=== PATIENT | male | born 1990 | race Caucasian/White ===

== ENCOUNTER → 2016-03-24 | Outpatient (CLI) | payer BC ==
[2016-03-24 18:48] VITALS: BP 131/74
--- NOTE | 2016-03-24 18:48 | Urgent Care T Sheet Gen (E) ---
Intake General Temperature (Fahrenheit): 97.6 Pulse: 75 Blood Pressure Systolic: 131 Blood Pressure Diastolic: 74 Respirations: 16 SPO2: 99% Chief Complaint: UC Genitourinary Complaint Description of Symptoms This 26 y/o man is here today because of hematuria. He states his day had been going well. He had completed his work day at [employer] and was working out feeling fine, he did some weights and ran a mile. Then he went to urinate and noted that it was difficult to go and when he did he saw artie red blood in his urine and had pain and burning within his penis. He has never had anything like this before. He denies fever and has never been sexually active. He denies any back pain at present. He denies drinking soda. There has not been any nausea or vomiting. His PCP is Dr. Stuart. Source: Patient Exam Limitations: No limitations History of Present Illness Onset & Duration: Hours Timing: Still present Severity: Mild Recent Trauma: No Similar Sympotms Previously: No Allergies: Coded Allergies: No Known Drug Allergies (Unverified , 12/29/12) Home Meds No Active Prescriptions or Reported Meds Respiratory Constitutional Symptoms: No syptoms reported EENTM: No symptoms reported Respiratory: No symptoms reported Cardiovascular: No symptoms reported Gastrointestinal/Abdominal: No symptoms reported Genitourinary: See HPI Hematuria Musculoskeletal: No symptoms reported Skin: No symptoms reported Neurological: No symptoms reported Hematologic/Lymphatic: No symptoms reported Immunologic/Allergies: No symptoms reported All Other Systems Reviewed Remaining Systems: All other systems reviewed with negative findings Past Czoerkc-Wlsbug-Hvrofx Hx Surgeries/Hospitalizations Hospitalization/Surgery Hx: none Respiratory Respiratory History: None Cardiovascular Cardiovascular History: None Gastrointestinal GI/Endocrine History: None Diabetes Diabetes: No HEENT Impaired Vision: Glasses Hearing Impaired: None Integumentary Integumentary History: Other, see comments Comment: laceration on left thigh Psychosocial Behavior Disorders: None Physical Exam Physical Exam General Appearance: WD/WN No apparent distress Eyes, Ears, Nose, Throat Ex: PERRL/EOMI Normal ENT inspection TMs normal Pharynx normal Neck Exam: Non tender Full range of motion Supple Normal inspection Normal thyroid Respiratory Exam: Chest non-tender Lungs clear Normal breath sounds No respiratory distress No accessory muscles used Cardiovascular Exam: Regular rate, rhythm No edema No gallop No JVD No murmur GI/ Exam: Non tender No organomegaly Normal bowel sounds No distention Back Exam: Normal Inspection No CVA tenderness No vertebral tenderness Skin Exam: Normal color Warm/dry/intact No rashes No embolic lesions Neurologic/Psychiatric Exam: Oriented times 4 CN's II-X nml No motor deficits No sensory deficits Mood/affect nml Progress/Orders Lab Results Labs Results: UA (The patient did report with donation of the urine samply here today it was better and easier to go and not the gross blood he had noted before arriving. ) UA Lab Results ph 6.5 Specific [place] 1.015 Protein trace Glucose (UA) negative Ketones negative Blood 3+ Nitrates negative Bilirubin negative Urobilirubin 0.2 Leukocyte Esterase negative Departure Urgent Care Impression Chief Complaint: UC Genitourinary Complaint Impression: Primary Impression: Hematuria Departure Disposition: 01 HOME OR SELF-CARE Condition: Stable Referrals: DENAE STUART MD (PCP) Additional Instructions: I have instructed the patient that his UA sample did confirm blood in the urine. However, since he is not having any back pain at the present time and the difficulty he had prior urinating is improved that we will simply take a treatment plan of observation for now. I have ordered his urine for culture. I have suggested he follow up with Dr. Stuart tomorrow for further delineation about whether or not he feels imaging is warranted or if he want urology consult with Dr. Love or both. I have advised Scott to hydrate well this evening with water and if he should develop worsening pain or inability to evacuate urine to go to the ER. Patient these instructions as I have outlined to him. Scripts No Active Prescriptions or Reported Meds End of report . RACHAEL LEE Mar 24, 2016 18:48
--- NOTE | 2016-03-27 12:53 | Urgent Care Follow Up Note (E) ---
Urgent Care Follow Up Note Urine culture showed "no growth". Results have been faxed to Dr Zuñiga. Scripts No Active Prescriptions or Reported Meds NOLAN ROMAN Mar 27, 2016 12:53
== END ==
LOC: MHUC 18:12
PROVIDERS: ATTEND Physician Assistant Medical
DX: R31.9 Hematuria, unspecified (principal)
CPT/HCPCS: 81002; 99213

== ENCOUNTER → 2016-03-25 | Outpatient (REF) | payer BC ==
[2016-03-25 10:54] LABS: BILIRUBIN,URINE Negative (Negative); COLOR,URINE Yellow; GLUCOSE, URINE (UA) Negative (Negative); LEUKOCYTE ESTERASE, URINE Negative (Negative); PH,URINE 6.5 (5.0 - 8.0); UROBILINOGEN,URINE 0.2 mg/dL (0.2-1.0)
[2016-03-25 11:01] LABS: CLARITY,URINE Slightly Cloudy
[2016-03-25 11:02] LABS: RBC,URINE 50-100 /HPF; URINE CENTRIFUGED VOLUME 12 mL
[2016-03-25 11:09] LABS: ANION GAP 16.6 MEQ/L (3-15); CALCULATED IONIZED CALCIUM 4.1 mg/dL (3.8-4.6)
== END ==
LOC: LAB 10:35
PROVIDERS: ATTEND Family Medicine
DX: R31.9 Hematuria, unspecified (principal); R82.1 Myoglobinuria
CPT/HCPCS: 80053; 81003; 81015; 82550; 87088